=== PATIENT | male | born 1960 | race American Indian/Alaskan Native ===

== ENCOUNTER 2018-06-27 21:50 | Observation (INO) | payer MEDICAID ==
[2018-06-27] MEDS ORDERED: ASPIRIN PO ONE (22:36)
[2018-06-27 23:09] LABS: Basophils # (Auto) 0.1 K/mm3 (0.0-0.1); Basophils % (Auto) 0.8 % (0.0-1.8); Eosinophils # (Auto) 0.4 K/mm3 (0.0-0.4); Eosinophils % (Auto) 4.8 % (0.0-4.3); Hematocrit 41.3 % (35.5-45.6); Hemoglobin 13.9 gm/dl (11.8-15.2); Lymphocytes # (Auto) 1.7 K/mm3 (1.2-5.4); Lymphocytes % (Auto) 18.8 % (13.4-35.0); Mean Corpuscular HGB Conc 34 % (32-34); Mean Corpuscular Volume 85 fl (84-94); Monocytes # (Auto) 0.9 K/mm3 (0.0-0.8); Monocytes % (Auto) 9.7 % (0.0-7.3); Platelet Count 264 K/mm3 (140-440); Red Blood Count 4.85 M/mm3 (3.65-5.03); Red Cell Distribution Width 15.2 % (13.2-15.2)
[2018-06-27 23:31] LABS: BUN/Creatinine Ratio 26; Blood Urea Nitrogen 18 mg/dL (9-20); Calcium 9.5 mg/dL (8.4-10.2); Hemolysis Index 11
--- NOTE | 2018-06-27 23:58 | XRay Report ---
PROCEDURE: XR CHEST 1V AP TECHNIQUE: Chest radiograph single view. HISTORY: Chest Pain COMPARISONS: None . FINDINGS: Heart: Heart is enlarged. Has been open heart surgery. Mediastinum/Vessels: Normal. Lungs/Pleural space: The left hemidiaphragm is elevated. There are no infiltrates, effusions or pneu mothoraces.. Bony thorax: No acute osseous abnormality. Life support devices: None. IMPRESSION: No acute cardiopulmonary abnormality. This document is electronically signed by Aguilar Solis MD., Jun 27 2018 11:56:43 PM ET
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
[2018-06-28] MEDS ORDERED: MORPHINE IV ONE (02:25)
[2018-06-28] MEDS ORDERED: ECOTRIN PO ONE (02:25)
[2018-06-28] MEDS ORDERED: ZOFRAN IV STA (02:26)
[2018-06-28] MEDS ORDERED: ZOFRAN IV PRN (02:40)
[2018-06-28] MEDS ORDERED: SODIUM CHLORIDE FLUSH SYRINGE 10 ML IV PRN ×3 (02:40→02:54)
[2018-06-28] MEDS ORDERED: MORPHINE IV PRN (02:40)
[2018-06-28] MEDS ORDERED: TYLENOL PO PRN (02:40)
--- NOTE | 2018-06-28 02:40 | History and Physical Report ---
<MACKENZIE SIEGEL - Last Filed: 06/28/18 04:59> History of Present Illness Date of examination: 06/28/18 Date of admission: 06/28/2018 Chief complaint: Chest pain 1 day History of present illness: Patient is a 58-year-old male with past medical history of CAD status post CABG 2015, DM type II, hypertension, hyperlipidemia, CHF who presents to the ER with complaints of chest pain 1 day. Patient states that he had been having chest p ain since yesterday morning around 5 AM, patient states that the pain is a pressure-like pain located on his left substernal area associated with shortness of breath, and some nausea. Patient states that his blood pressure had been elevated all week, he went to his PCP and his medication was changed. Patient states that the today his blood pressure was normal but he was experiencing some dizziness, headache and some weakness. Patient states that he went to his mom's house but the symptoms continues. Patient's states that the chest pain is similar to his previous chest pain, He decided to come to the ER for evaluation. Patient reports that he had an appointment with [facility] for next week, but he was in such pain that he decided to come to the ER for evaluation. In the ER patient had an EKG that was abnormal, he is cardiac enzymes were negative, he was admitted for further evaluation of this chest pain. Past History Past Medical History: diabetes, heart failure, hypertension, hyperlipidemia Medications and Allergies Allergies Allergy/AdvReac Type Severity Reaction Status Date / Time Penicillins Allergy Hives Verified 12/22/15 22:36 Home Medications Medication Instructions Recorded Confirmed Last Taken Type Aspirin EC [Aspirin Enteric Coated 325 mg PO QDAY #30 tablet. 12/24/15 06/28/18 Unknown Rx TAB] Carvedilol [Coreg] 12.5 mg PO BID #60 tablet 12/24/15 06/28/18 Unknown Rx Lisinopril [Zestril TAB] 10 mg PO DAILY 12/24/15 06/28/18 Unknown History Nitroglycerin [Nitrostat] 0.4 mg SUBLINGUAL PRN 12/24/15 06/28/18 Unknown History Rosuvastatin Calcium [Crestor] 40 mg PO QHS 12/24/15 06/28/18 Unknown History metFORMIN [Glucophage] 500 mg PO BID 12/24/15 06/28/18 Unknown History Review of Systems Cardiovascular: chest pain, palpitations, shortness of breath Respiratory: dyspnea on exertion Exam - Constitutional Vitals: Temp Pulse Resp BP Pulse Ox 98.2 F 91 H 26 H 140/87 99 06/27/18 22:04 06/28/18 01:15 06/28/18 01:15 06/28/18 01:06/27/18 22:04 General appearance: Present: no acute distress - EENT Eyes: Present: PERRL, EOM intact ENT: hearing intact - Neck Neck: Present: normal ROM - Respiratory Respiratory effort: normal Respiratory: bilateral: diminished - Cardiovascular Rhythm: regular Heart Sounds: Present: S1 & S2 - Extremities Extremity abnormal: edema Peripheral Pulses: within normal limits - Abdominal General gastrointestinal: Present: deferred, non-distended Male genitourinary: Present: deferred - Integumentary Integumentary: Present: warm, dry - Musculoskeletal Musculoskeletal: generalized weakness - Psychiatric Psychiatric: cooperative - Neurologic Neurologic: moves all extremities Results - Labs CBC & Chem 7: 06/28/18 03:26 06/28/18 03:26 Labs: Laboratory Last Values WBC 9.0 K/mm3 (4.5-11.0) 06/27/18 22:59 RBC 4.85 M/mm3 (3.65-5.03) 06/27/18 22:59 Hgb 13.9 gm/dl (11.8-15.2) 06/27/18 22:59 Hct 41.3 % (35.5-45.6) 06/27/18 22:59 MCV 85 fl (84-94) 06/27/18 22:59 MCH 29 pg (28-32) 06/27/18 22:59 MCHC 34 % (32-34) 06/27/18 22:59 RDW 15.2 % (13.2-15.2) 06/27/18 22:59 Plt Count 264 K/mm3 (140-440) 06/27/18 22:59 Lymph % (Auto) 18.8 % (13.4-35.0) 06/27/18 22:59 [place] % (Auto) 9.7 % (0.0-7.3) H 06/27/18 22:59 Eos % (Auto) 4.8 % (0.0-4.3) H 06/27/18 22:59 Baso % (Auto) 0.8 % (0.0-1.8) 06/27/18 22:59 Lymph # 1.7 K/mm3 (1.2-5.4) 06/27/18 22:59 [place] # 0.9 K/mm3 (0.0-0.8) H 06/27/18 22:59 Eos # 0.4 K/mm3 (0.0-0.4) 06/27/18 22:59 Baso # 0.1 K/mm3 (0.0-0.1) 06/27/18 22:59 Seg Neutrophils % 65.9 % (40.0-70.0) 06/27/18 22:59 Seg Neutrophils # 5.9 K/mm3 (1.8-7.7) 06/27/18 22:59 Sodium 140 mmol/L (137-145) 06/27/18 22:59 Potassium 4.3 mmol/L (3.6-5.0) 06/27/18 22:59 Chloride 98.9 mmol/L (98-107) 06/27/18 22:59 Carbon Dioxide 28 mmol/L (22-30) 06/27/18 22:59 17 mmol/L 06/27/18 22:59 BUN 18 mg/dL (9-20) 06/27/18 22:59 0.7 mg/dL (0.8-1.5) L 06/27/18 22:59 Estimated GFR > 60 ml/min 06/27/18 22:59 26 % 06/27/18 22:59 Glucose 154 mg/dL (75-100) H 06/27/18 22:59 Calcium 9.5 mg/dL (8.4-10.2) 06/27/18 22:59 < 0.010 ng/mL (0.00-0.029) 06/28/18 01:47 Assessment and Plan Assessment and plan: 1. Acute chest pain rule out ACS 2. CAD status post CABG 2015 3. Hyperlipidemia 4. Hypertension 5. Acute CHF (EF and the last echo unknown) 6. Acute dyspnea due to CHF 7. Uncontrolled DM type II Plan: Patient is admitted for chest pain Continue cardiac enzymes every 6 hours 2 Consult cardiology for evaluation Accu-Chek ACHS with insulin per sliding scale EKG with chest pain Lasix 40 IV daily Resume home meds No DVT prophylaxis, patient is ambulatory Further plan per cardiology Advance Directives: Yes VTE prophylaxis?: Mechanical Plan of care discussed with patient/family: Yes <MAGGIE KRAFT - Last Filed: 06/28/18 06:14> History of Present Illness Date of admission: 06/28/18 03:59 Medications and Allergies Active Meds: Active Medications Acetaminophen (Tylenol) 650 mg PO Q4H PRN PRN Reason: Pain MILD(1-3)/Fever >100.5/FINE Aspirin (Ecotrin) 325 mg PO QDAY [facility] Atorvastatin Calcium (Lipitor) 80 mg PO QHS [facility] Carvedilol (Coreg) 12.5 mg PO BID [facility] Furosemide (Lasix) 40 mg IV QDAY [facility] Glyburide (Diabeta) 2.5 mg PO BIDDIAB [facility] Isosorbide Mononitrate (Imdur) 30 mg PO DAILY [facility] Levetiracetam (Keppra) 500 mg PO BID [facility] Lisinopril (Zestril) 10 mg PO DAILY [facility] Metformin HCl (Glucophage) 500 mg PO BIDDIAB [facility] Morphine Sulfate (Morphine) 2 mg IV Q4H PRN PRN Reason: Pain, Moderate (4-6) Nitroglycerin (Nitrostat) 0.4 mg SL PRN PRN PRN Reason: Chest Pain Ondansetron HCl (Zofran) 4 mg IV Q8H PRN PRN Reason: Nausea And Vomiting Pantoprazole Sodium (Protonix) 20 mg PO QDAY [facility] Sodium Chloride (Sodium Chloride Flush Syringe 10 Ml) 10 ml IV BID [facility] Sodium Chloride (Sodium Chloride Flush Syringe 10 Ml) 10 ml IV PRN PRN PRN Reason: LINE FLUSH Exam - Constitutional Vitals: Temp Pulse Resp BP Pulse Ox 98.2 F 91 H 16 125/67 99 06/27/18 22:04 06/28/18 01:15 06/28/18 03:16 06/28/18 02:51 06/27/18 22:04 Results - Labs CBC & Chem 7: 06/28/18 03:26 06/28/18 03:26 Labs: Laboratory Last Values WBC 9.0 K/mm3 (4.5-11.0) 06/28/18 03:26 RBC 5.05 M/mm3 (3.65-5.03) H 06/28/18 03:26 Hgb 14.1 gm/dl (11.8-15.2) 06/28/18 03:26 Hct 42.8 % (35.5-45.6) 06/28/18 03:26 MCV 85 fl (84-94) 06/28/18 03:26 MCH 28 pg (28-32) 06/28/18 03:26 MCHC 33 % (32-34) 06/28/18 03:26 RDW 15.0 % (13.2-15.2) 06/28/18 03:26 Plt Count 269 K/mm3 (140-440) 06/28/18 03:26 Lymph % (Auto) 21.4 % (13.4-35.0) 06/28/18 03:26 [place] % (Auto) 9.6 % (0.0-7.3) H 06/28/18 03:26 Eos % (Auto) 5.1 % (0.0-4.3) H 06/28/18 03:26 Baso % (Auto) 1.2 % (0.0-1.8) 06/28/18 03:26 Lymph # 1.9 K/mm3 (1.2-5.4) 06/28/18 03:26 [place] # 0.9 K/mm3 (0.0-0.8) H 06/28/18 03:26 Eos # 0.5 K/mm3 (0.0-0.4) H 06/28/18 03:26 Baso # 0.1 K/mm3 (0.0-0.1) 06/28/18 03:26 Seg Neutrophils % 62.7 % (40.0-70.0) 06/28/18 03:26 Seg Neutrophils # 5.7 K/mm3 (1.8-7.7) 06/28/18 03:26 Sodium 139 mmol/L (137-145) 06/28/18 03:26 Potassium 4.1 mmol/L (3.6-5.0) 06/28/18 03:26 Chloride 99.2 mmol/L (98-107) 06/28/18 03:26 Carbon Dioxide 25 mmol/L (22-30) 06/28/18 03:26 19 mmol/L 05/16/19 03:26 BUN 20 mg/dL (9-20) 06/28/18 03:26 0.6 mg/dL (0.8-1.5) L 06/28/18 03:26 Estimated GFR > 60 ml/min 06/28/18 03:26 33 % 06/28/18 03:26 Glucose 178 mg/dL (75-100) H 06/28/18 03:26 10.0 % (4-6) H 06/28/18 03:26 Calcium 9.7 mg/dL (8.4-10.2) 06/28/18 03:26 < 0.010 ng/mL (0.00-0.029) 06/28/18 01:47 Triglycerides 120 mg/dL (2-149) 06/28/18 03:26 Cholesterol 202 mg/dL (50-199) H 06/28/18 03:26 161 mg/dL (50-130) H 06/28/18 03:26 44 mg/dL (40-59) 06/28/18 03:26 4.59 % 06/28/18 03:26 Assessment and Plan Assessment and plan: 58-year-old male with a history of hypertension, diabetes, coronary artery disease comes emergency room with complaints of epigastric pain which she describes a pressure-like sensation, relieved with nitroglycerin and associated shortness of breath. Physical exam is benign, agree with plan as discussed above, except hold cardiology consult and diabetic medications, will obtain stress test
[2018-06-28 04:01] LABS: Basophils # (Auto) 0.1 K/mm3 (0.0-0.1); Basophils % (Auto) 1.2 % (0.0-1.8); Eosinophils # (Auto) 0.5 K/mm3 (0.0-0.4); Eosinophils % (Auto) 5.1 % (0.0-4.3); Hematocrit 42.8 % (35.5-45.6); Hemoglobin 14.1 gm/dl (11.8-15.2); Lymphocytes # (Auto) 1.9 K/mm3 (1.2-5.4); Lymphocytes % (Auto) 21.4 % (13.4-35.0); Mean Corpuscular HGB Conc 33 % (32-34); Mean Corpuscular Volume 85 fl (84-94); Monocytes # (Auto) 0.9 K/mm3 (0.0-0.8); Monocytes % (Auto) 9.6 % (0.0-7.3); Platelet Count 269 K/mm3 (140-440); Red Blood Count 5.05 M/mm3 (3.65-5.03)
[2018-06-28 04:13] LABS: BUN/Creatinine Ratio 33; Blood Urea Nitrogen 20 mg/dL (9-20); Calcium 9.7 mg/dL (8.4-10.2); Hemolysis Index 3
[2018-06-28 04:22] LABS: Chol/HDL Ratio 4.59 %
[2018-06-28] MEDS ORDERED: NITROSTAT SL PRN (06:00)
[2018-06-28] MEDS ORDERED: GLUCOPHAGE PO SCH (08:00)
[2018-06-28] MEDS ORDERED: DIABETA PO SCH (08:00)
[2018-06-28] MEDS ORDERED: LEXISCAN IV ONE ×2 (09:48→09:50)
[2018-06-28] MEDS ORDERED: SODIUM CHLORIDE FLUSH SYRINGE 10 ML IV SCH (10:00)
[2018-06-28] MEDS ORDERED: COREG PO SCH (10:00)
[2018-06-28] MEDS ORDERED: PEPCID PO SCH (10:00)
[2018-06-28] MEDS ORDERED: KEPPRA PO SCH (10:00)
[2018-06-28] MEDS ORDERED: IMDUR PO SCH (10:00)
[2018-06-28] MEDS ORDERED: ZESTRIL PO SCH (10:00)
[2018-06-28] MEDS ORDERED: NON-FORMULARY (Esomeprazole Magnesium [Nexium 24hr] 20 MG) PO SCH (10:00)
[2018-06-28] MEDS ORDERED: LASIX IV SCH (10:00)
[2018-06-28] MEDS ORDERED: ECOTRIN PO SCH (10:00)
[2018-06-28] MEDS ORDERED: PROTONIX PO SCH (10:00)
--- NOTE | 2018-06-28 11:26 | Discharge Summary ---
Providers - Providers Date of Admission: 06/28/18 03:59 Date of discharge: 06/28/18 Attending physician: SU CORBETT 06/28/18 Consult to Cardiac Rehabilitation [CONS] Routine Reason For Exam: Phase I Consult to Cardiac Rehabilitation [CONS] Routine Reason For Exam: Phase I Primary care physician: CHENG GILMAN Hospitalization Reason for admission: cp Condition: Stable Hospital course: 58-year-old male with history of coronary bypass grafting, diabetes, hypertension and hypercholesterolemia presented to the emergency department with a complaint of chest pain. Patient states he had chest pain since 5 AM prior to admission which had been intermittent. Patient stated the pain was in the left side of his chest. Patient states pain improves when he lays on it. Patient states his last stress test was in 2015. Patient denies any cocaine use. The patient had cardiac isoenzymes found to be negative. EKG with no significant change. Upon my examination, patient was noted to have reproducible pain to palpation to chest wall. Patient underwent stress thallium and if found to be negative the patient will be discharged home. Etiology is likely costochondritis Dedicated discharged time 32 min Disposition: DC-01 TO HOME OR SELFCARE Time spent for discharge: 32 - Discharge Diagnoses (1) Costochondritis Status: Acute Core Measure Documentation - Palliative Care Palliative Care/ Comfort Measures: Not Applicable - Core Measures Any of the following diagnoses?: none Exam - Constitutional Vitals: Temp Pulse Resp BP Pulse Ox 98.4 F 74 20 120/62 90 06/28/18 08:26 06/28/18 08:26 06/28/18 08:26 06/28/18 08:26 06/28/18 08:26 General appearance: Present: no acute distress, well-nourished - EENT Eyes: Present: PERRL ENT: hearing intact, clear oral mucosa - Neck Neck: Present: supple, normal ROM - Respiratory Respiratory effort: normal Respiratory: bilateral: CTA - Cardiovascular Heart Sounds: Present: S1 & S2. Absent: rub, click - Extremities Extremities: pulses symmetrical, No edema Peripheral Pulses: within normal limits - Abdominal General gastrointestinal: Present: soft, non-tender, non-distended, normal bowel sounds Male genitourinary: Present: normal - Integumentary Integumentary: Present: clear, warm, dry - Musculoskeletal Musculoskeletal: gait normal, strength equal bilaterally - Psychiatric Psychiatric: appropriate mood/affect, intact judgment & insight - Neurologic Neurologic: CNII-XII intact, moves all extremities Plan Activity: no restrictions Weight Bearing Status: Full Weight Bearing Follow up with: CHENG GILMAN MD [Primary Care Provider] - 3-5 Days Prescriptions: Aspirin EC [Aspirin Enteric Coated TAB] 325 mg PO QDAY #30 tablet Aspirin EC [Aspirin Enteric Coated TAB] 325 mg PO QDAY #30 tablet. Carvedilol [Coreg] 12.5 mg PO BID #60 tablet ISOSORBIDE MONOnitrate [Imdur ER] 30 mg PO DAILY #30 tablet Pantoprazole [Protonix TAB] 20 mg PO QDAY #30 tablet. Lisinopril [Zestril TAB] 10 mg PO DAILY #30 tablet
[2018-06-28 20:14] VITALS: BP 107/61
--- NOTE | 2018-06-28 20:54 | Treadmill Report ---
THALLIUM STRESS TEST LEFT VENTRICLE: Left ventricle is at the upper limits of normal in size. There is a small, fixed basal anterior defect, with no reversibility on the resting study. Gated analysis demonstrates well preserved left ventricular systolic function, ejection fraction 66%. CONCLUSION: Evidence of a possible prior basal anterior wall myocardial infarction, with no reversible ischemia demonstrated. Well preserved left ventricular systolic function. Clinical correlation is recommended. [facility]# [id number] OR/NTS
[2018-06-28] MEDS ORDERED: NON-FORMULARY (Rosuvastatin Calcium [Crestor] 40 MG) PO SCH (22:00)
[2018-06-29] MEDS ORDERED: ECOTRIN PO SCH (10:00)
== END 2018-06-28 20:49 | disposition home or self-care (01) ==
LOC: ED 21:50 → 4A 06-28 03:59 → INTOOBSV 06-28 03:59
PROVIDERS: ADMIT Internal Medicine; ATTEND Hospitalist
DX: R07.89 Other chest pain (principal); I25.10 Atherosclerotic heart disease of native coronary artery without angina pectoris; E78.5 Hyperlipidemia, unspecified; I11.0 Hypertensive heart disease with heart failure; I50.9 Heart failure, unspecified; R06.00 Dyspnea, unspecified; E11.9 Type 2 diabetes mellitus without complications; Z95.1 Presence of aortocoronary bypass graft; Z88.0 Allergy status to penicillin; Z88.8 Allergy status to other drugs, medicaments and biological substances; Z79.899 Other long term (current) drug therapy
CPT/HCPCS: 36415; 71045; 78452; 80048; 80061; 82962; 83036; 84484; 85025; 93005; 93010; 93017; 96374; 96375; 96376; 99284; A9502; G0378; J1940; J2270; J2405; J2785; 99285